=== PATIENT | female | born 1945 | race Caucasian/White ===

== ENCOUNTER → 2018-02-10 09:46 | Outpatient (CLI) | payer MEDICARE, OTHER, SELFPAY ==
--- NOTE | 2018-02-10 09:58 | VDLE_ITS ---
Reason For Study: LEG PAIN AND SWELLING RIGHT LEFT CFV is compressible, spontaneous, phasic, CFV is compressible, spontaneous, phasic, competent and demonstrates normal competent, and demonstrates normal augmentation. augmentation. FV is compressible, spontaneous, phasic, FV is compressible, spontaneous, phasic, competent and demonstrates normal competent and demonstrates normal augmentation. augmentation. POP V is compressible, spontaneous, phasic, POP V is compressible, spontaneous, phasic, competent and demonstrates normal competent and demonstrates normal augmentation. augmentation. T/P Trunk is compressible. T/P Trunk is compressible. PTV is compressible. PTV is compressible. RT PerV is compressible. LT PerV is compressible. SFJ is INCOMPETENT SFJ is competent GSV is INCOMPETENT with reflux greater GSV is competent than .5 sec and diameter of .44 x .48 cm ASV INCOMPETENT with reflux greater than .5 SSV is INCOMPETENt with reflux greater sec and diameter of .42 x .50 cm than .5 sec and diameter of.35 x .34 cm. SSV is INCOMPETENT with reflux greater Procedure than .5 sec and diameter of .31 x .30 cm. Exam performed in department. Interpretation Summary Deep veins of the lower extremities are bilaterally patent and compressible segmentally. There is no evidence of deep vein thrombosis on either side. Valvular competence appears intact within the proximal deep venous systems bilaterally. The greater saphenous veins appear bilaterally patent and compressible segmentally. The right sapheno-femoral junction is incompetent . The left sapheno- femoral junction is competent . The right greater saphenous vein appears segmentally incompetent. The left greater saphenous vein appears segmentally competent. Small saphenous veins are patent and incompetent bilaterally. The left accessory saphenous vein is incompetent. Ordering Physician: Darwin Beyer Referring Physician: Darwin Beyer Performed By: Jovita Robertson RVT
== END ==
PROVIDERS: Family Provider Nurse Practitioner Family; PCP Nurse Practitioner Family; Visit Provider Surgery
DX: I87.2 Venous insufficiency (chronic) (peripheral) (principal); M79.89 Other specified soft tissue disorders; M79.606 Pain in leg, unspecified
CPT/HCPCS: 93970